=== PATIENT | male | born 1965 | race Caucasian/White ===

== ENCOUNTER 2017-08-08 09:15 | Emergency (ER) | payer SELFPAY ==
[~2017-08-08] VITALS: Ht 167.6 cm; Wt 68.1 kg
[2017-08-08 09:25] VITALS: BP 122/76
[2017-08-08] MEDS: LIDOCAINE VISCOUS 2% 20 ML UDC PO ONE (09:35)
[2017-08-08 10:06] VITALS: BP 122/76
== END 2017-08-08 10:07 | disposition home or self-care (01) ==
LOC: MED 09:15
DX: K12.1 Other forms of stomatitis (principal); Z90.89 Acquired absence of other organs
CPT/HCPCS: 99283

== ENCOUNTER 2020-06-25 15:58 | Emergency (ER) | payer OTHER ==
[~2020-06-25] VITALS: Ht 167.6 cm; Wt 68.0 kg
[2020-06-25 16:08] VITALS: BP 110/65
--- NOTE | 2020-06-25 16:15 | NUR ---
AMBULATED TO BED 11
--- NOTE | 2020-06-25 16:15 | NUR ---
R KNEE PAIN 7/10 X 1 WEEK. PT HAS HX OF GOUT.
--- NOTE | 2020-06-25 16:40 | NUR ---
DELFINO CHAPMAN AT BEDSIDE
[2020-06-25 16:42] VITALS: BP 110/65
== END 2020-06-25 16:44 | disposition home or self-care (01) ==
LOC: MED 15:58
DX: M25.561 Pain in right knee (principal); Z98.890 Other specified postprocedural states
CPT/HCPCS: 99283